=== PATIENT | female | born 1995 | race Caucasian/White ===

== ENCOUNTER 2019-02-13 16:48 | Emergency (ER) | payer OTHER ==
--- NOTE | 2019-02-13 17:09 | ER Document Report ---
ED Medical Screen (RME) - General Chief Complaint: Passed Out Prior to Arrival Stated Complaint: POSSIBLE SYNCOPE - HPI Notes: 02/13/19 17:07 Patient is a 23-year-old female with a history of chronic GI issues who presents complaining of syncopal episode prior to arrival today. Patient states that she had a similar incident on Friday and again on Friday. Patient states that she did have some intermittent nausea, but none currently. She did not hit her head or lose consciousness otherwise. No recent illness. She is able to eat and drink without difficulty. She is urinating normally. Last menstrual period was 1 week ago. No fever, chest pain, shortness of breath, palpitations. I have treated and performed a rapid initial assessment of this patient. A comprehensive ED assessment and evaluation of the patient, analysis of test results and completion of medical decision making process will be conducted by additional ED providers. PHYSICAL EXAMINATION: GENERAL: Well-appearing, well-nourished and in no acute distress. A&Ox4. Answers questions appropriately. Neuro: Cranial nerves grossly intact, NIH 0, GCS 15. Heart: RRR Lungs: CTAB - Related Data Allergies/Adverse Reactions: Penicillins Allergy (Verified 02/13/19 17:00) Physical Exam - Vital signs Vitals: Temp Pulse Resp BP Pulse Ox 98.7 F 111 H 14 132/86 H 100 02/13/19 16:51 02/13/19 16:51 02/13/19 16:51 02/13/19 16:51 02/13/19 16:51 Course - Vital Signs Vital signs: Temp Pulse Resp BP Pulse Ox 98.7 F 111 H 14 132/86 H 100 02/13/19 16:51 02/13/19 16:51 02/13/19 16:51 02/13/19 16:51 02/13/19 16:51
[2019-02-13] MEDS: NORMAL SALINE 1000 ML 1,000 ML IV PRN ×2 (17:54→18:30)
[2019-02-13 17:58] LABS: APPEARANCE,URINE SLIGHTLY-CLOUDY; BILIRUBIN,URINE NEGATIVE (NEGATIVE); COLOR,URINE YELLOW; GLUCOSE, URINE NEGATIVE (NEGATIVE); KETONES,URINE NEGATIVE (NEGATIVE); PROTEIN,URINE NEGATIVE (NEGATIVE); URINE SPECIFIC GRAVITY 1.009; UROBILINOGEN,URINE NEGATIVE mg/dL (<2.0)
[2019-02-13 18:11] LABS: ABSOLUTE EOSINOPHILS # (AUTO) 0.1 10^3/uL (0.0-0.6); ABSOLUTE LYMPHOCYTES (AUTO) 1.6 10^3/uL (0.5-4.7); ABSOLUTE MONOCYTES (AUTO) 0.5 10^3/uL (0.1-1.4); ABSOLUTE NEUT (AUTO) 2.7 10^3/uL (1.7-8.2); BASOPHILS % (AUTO) 0.5 % (0-2); EOSINOPHILS % (AUTO) 1.7 % (0-6); HEMATOCRIT 39.4 % (36.0-47.0); HEMOGLOBIN 13.2 g/dL (12.0-15.5); LYMPHOCYTES % (AUTO) 32.9 % (13-45); MEAN CORPUSCULAR HEMOGLOBIN 29.4 pg (27.0-33.4); MEAN CORPUSCULAR HGB CONC 33.5 g/dL (32.0-36.0); MEAN CORPUSCULAR VOLUME 88 fl (80-97); MONOCYTES % (AUTO) 9.5 % (3-13); PLATELET COUNT 358 10^3/uL (150-450); RED BLOOD COUNT 4.49 10^6/uL (3.72-5.28); RED CELL DISTRIBUTION WIDTH 12.9 % (11.5-14.0); SEGMENTED NEUTROPHILS % (AUTO) 55.4 % (42-78); TOTAL CELLS COUNTED % (AUTO) 100 %; WHITE BLOOD COUNT 4.9 10^3/uL (4.0-10.5)
[2019-02-13 18:28] LABS: ALBUMIN 4.6 g/dL (3.5-5.0); ALKALINE PHOSPHATASE 69 U/L (38-126); ANION GAP 11 (5-19); ASPARTATE AMINO TRANSFERASE 26 U/L (14-36); BILIRUBIN,DIRECT 0.1 mg/dL (0.0-0.4); BILIRUBIN,TOTAL 0.3 mg/dL (0.2-1.3); BLOOD UREA NITROGEN 8 mg/dL (7-20); CALCIUM 10.2 mg/dL (8.4-10.2); CARBON DIOXIDE 27 mmol/L (22-30); CHLORIDE 102 mmol/L (98-107); GLUCOSE 102 mg/dL (75-110); POTASSIUM 4.3 mmol/L (3.6-5.0); TOTAL PROTEIN 7.7 g/dL (6.3-8.2)
[2019-02-13] MEDS ORDERED: NORMAL SALINE 1000 ML 1,000 ML IV ONE (18:55)
--- NOTE | 2019-02-13 19:31 | ER Document Report ---
ED General - General Chief Complaint: Fainting Stated Complaint: POSSIBLE SYNCOPE Time Seen by Provider: 02/13/19 18:52 Primary Care Provider: IBRAHIMA GRACIA MD [Primary Care Provider] - Follow up as needed - HPI Notes: Patient is a 23-year-old female who presents emergency department for evaluation of a near syncopal episode. She states she is really not sure if she passed out all the way or not. She states she was walking around [place] by herself today. She started feeling dizzy. She had a headache. She started heading home and her symptoms persisted. She called her , who is currently deployed in [place]. He advised her to felt puller, call 1 of their neighbors. She put her head down in her hands, and she states she is unsure as to whether or not she passed out or fell asleep. She had her head against the side of the car. She states that last Friday she had a syncopal episode in her apartment. She was on the phone with her . She states she was down on the floor for about 30 minutes. She saw her primary care provider about this, who referred her on to neurology. At this point she has a mild headache, but denies any other acute issues or concerns. - Related Data Allergies/Adverse Reactions: Penicillins Allergy (Verified 02/13/19 17:00) Home Medications: Amitriptyline, Zofran, pantoprazole Past Medical History - General Information source: Patient - Social History Smoking Status: Never Smoker Drug Abuse: None Family History: Reviewed & Not Pertinent Patient has suicidal ideation: No Patient has homicidal ideation: No GI Medical History: Reports: Hx Gastroesophageal Reflux Disease Psychiatric Medical History: Reports: Hx Anxiety, Hx Depression Review of Systems - Review of Systems Constitutional: See HPI EENT: No symptoms reported Cardiovascular: No symptoms reported Respiratory: No symptoms reported Gastrointestinal: See HPI Genitourinary: No symptoms reported Female Genitourinary: No symptoms reported Musculoskeletal: No symptoms reported Skin: No symptoms reported Neurological/Psychological: No symptoms reported Physical Exam - Vital signs Vitals: Temp Pulse Resp BP Pulse Ox 98.7 F 111 H 14 132/86 H 100 02/13/19 16:51 02/13/19 16:51 02/13/19 16:51 02/13/19 16:51 02/13/19 16:51 - Notes Notes: Vital signs reviewed, please refer to chart. Head is normocephalic, atraumatic. Pupils equal round, reactive to light. Neck is supple without meningismus. Heart is tachycardic with normal S1-S2. Lungs are clear to auscultation bilaterally. Abdomen is soft, nontender, normoactive bowel sounds throughout. Extremities without cyanosis, clubbing. Posterior calves are nontender. Peripheral pulses are equal. Skin is warm and dry. Patient is awake, alert, oriented x3. Cranial nerves II - XII are grossly intact without focal neurological deficits. Strength is plus 5 out of 5 bilateral upper and lower extremities. Sensation is intact. Reflexes symmetrical. Intact [id number], rapid alternating movements, [id number]. Course - Re-evaluation Re-evalutation: 02/13/19 23:24 Patient presents emergency department for evaluation of syncopal versus near syncopal episode. Laboratory investigations were obtained. Patient was found to be markedly tachycardic. No other significant abnormality was noted. She was given IV fluids, and her heart rate did not significantly respond. During the course of her stay, the patient complained of a strange sensation in her chest. Given this information and the son explained tachycardia, decision was made to proceed with CT angiogram of the chest. This is found to be negative as well. At this point, I do not have a clear etiology for this patient's symptoms . I do believe that referral to cardiology is appropriate at this time. She needs to follow-up with her primary care provider as well. She is to return to the ED with worsening or concerning symptoms of any sort. - Vital Signs Vital signs: Temp Pulse Resp BP Pulse Ox 98.7 F 119 H 14 113/69 97 02/13/19 16:51 02/13/19 19:41 02/13/19 22:10 02/13/19 22:01 02/13/19 22:10 - Laboratory Result Diagrams: 02/13/19 17:45 02/13/19 17:45 Laboratory results interpreted by me: 02/13/19 15:20 Urine Blood SMALL H Leukocyte Esterase Rfl SMALL H - Diagnostic Test Radiology reviewed: Image reviewed, Reports reviewed - EKG Interpretation by Me Additional EKG results interpreted by me: 02/13/19 23:28 Sinus arrhythmia with a rate of 108 bpm. Normal axis and intervals, no acute ST changes concerning for ischemia or infarction Discharge - Discharge Clinical Impression: Sinus tachycardia Syncope Qualifiers: Encounter type: initial encounter Condition: Stable Disposition: HOME, SELF-CARE Instructions: Sinus Tachycardia ([facility]), Syncopal Episode ([facility]) Additional Instructions: No clear cause was found for your symptoms today. You should follow-up with primary care as well as cardiology. Given your unexplained syncope, you should not drive until further evaluated. Return to the emergency department with worsening or new concerning symptoms of any sort. Referrals: IBRAHIMA GRACIA MD [Primary Care Provider] - Follow up as needed
[2019-02-13 20:05] LABS: URINE AMPHETAMINES SCREEN NEGATIVE; URINE BARBITURATES SCREEN NEGATIVE; URINE BENZODIAZEPINES SCREEN NEGATIVE; URINE COCAINE SCREEN NEGATIVE; URINE MARIJUANA (THC) SCREEN NEGATIVE; URINE METHADONE SCREEN NEGATIVE; URINE PHENCYCLIDINE SCREEN NEGATIVE
--- NOTE | 2019-02-13 21:25 | EKG REPORT ---
SEVERITY:- BORDERLINE ECG - SINUS TACHYCARDIA WITH IRREGULAR RATE 94-130 : Confirmed by: Geovani Beltran MD 13-Feb-2019 21:24:31
--- NOTE | 2019-02-13 23:02 | RADIOLOGY REPORT (SQ) ---
EXAM DESCRIPTION: CT CHEST ANGIOGRAPHY WITHOUT THEN WITH IV CONTRAST COMPLETED DATE/TME: 02/13/2019 21:01 CLINICAL HISTORY: 23 years Female, tachycardia, chest discomfort Comparison: None. Technique: IV contrast. Coronal and sagittal reformat. 3d reconstruction. This exam was performed according to our departmental dose-optimization program, which includes automated exposure control, adjustment of the mA and/or kV according to patient size and/or use of iterative reconstruction technique.[facility]: Dose Right [facility]: CareDose [facility]: Dose Right [facility]: Teradose 4D [facility]: [employer] LIMITATIONS: None Findings: No pulmonary embolus. No right ventricular strain. Clear lungs. Inferior neck, axillae, mediastinum, airway, lymphatics, heart, vasculature, upper abdomen, and musculoskeleton appear otherwise unremarkable. Impression: No pulmonary embolus. No acute cardiopulmonary findings.
[2019-02-13 23:44] VITALS: BP 110/75
== END 2019-02-13 23:53 | disposition home or self-care (01) ==
LOC: ER 16:48
DX: R00.0 Tachycardia, unspecified (principal); R55 Syncope and collapse; R42 Dizziness and giddiness; R51 Headache; Z79.899 Other long term (current) drug therapy
CPT/HCPCS: 93005; 36415; 87086; 83735; 84443; 85025; 81025; 80053; 81001; 80307; 71275; 93010; J7030

== ENCOUNTER 2019-03-28 23:26 | Emergency (ER) | payer OTHER ==
--- NOTE | 2019-03-29 01:56 | ER Document Report ---
ED General - General Chief Complaint: Chest Tightness Stated Complaint: CHEST PAIN Time Seen by Provider: 03/29/19 01:18 Primary Care Provider: IBRAHIMA GRACIA MD [Primary Care Provider] - Follow up as needed Notes: Patient is a 23-year-old female that comes emergency department for chief complaint of pressure and discomfort sensation over her mid to right chest. She states this is coming and going, she states she is feeling it on and off for the past 3 days but much more noticeably today. She states it also feels like it is worse with a breath and her heart is racing at times. She states she is currently undergoing work-up for tachycardia by cardiology but they have not started on the new medications yet. She denies smoking, recreational drugs, recent alcohol. LMP within the past month. She denies recent travel or surgery, history of blood clot, oral contraceptive use, swelling of the legs, family history of early cardiac disease or blood clot. TRAVEL OUTSIDE OF THE [place] IN LAST 30 DAYS: No - Related Data Allergies/Adverse Reactions: Penicillins Allergy (Verified 03/29/19 00:00) NSAIDS (Non-Steroidal Anti-Inflamma Adverse Reaction (Severe, Verified 03/29/19 00:01) GI upset Past Medical History - General Information source: Patient - Social History Smoking Status: Never Smoker Frequency of alcohol use: Occasional Drug Abuse: None Lives with: Family Family History: Reviewed & Not Pertinent Patient has suicidal ideation: No Patient has homicidal ideation: No GI Medical History: Reports: Hx Gastroesophageal Reflux Disease Psychiatric Medical History: Reports: Hx Anxiety, Hx Depression - Immunizations Hx Diphtheria, Pertussis, Tetanus Vaccination: Yes Review of Systems - Review of Systems Constitutional: No symptoms reported EENT: No symptoms reported Cardiovascular: See HPI Respiratory: See HPI Gastrointestinal: No symptoms reported Genitourinary: No symptoms reported Female Genitourinary: No symptoms reported Musculoskeletal: No symptoms reported Skin: No symptoms reported Hematologic/Lymphatic: No symptoms reported Neurological/Psychological: No symptoms reported Physical Exam - Vital signs Vitals: Temp Pulse Resp BP Pulse Ox 98.2 F 109 H 20 125/83 99 03/28/19 23:37 03/28/19 23:37 03/28/19 23:37 03/28/19 23:37 03/28/19 23:37 - Notes Notes: GENERAL: Alert, interacts well. No acute distress. HEAD: Normocephalic, atraumatic. EYES: Pupils equal, round, and reactive to light. Extraocular movements intact. ENT: Oral mucosa moist, tongue midline. Oropharynx unremarkable. NECK: Full range of motion. Supple. Trachea midline. LUNGS: Clear to auscultation bilaterally, no wheezes, rales, or rhonchi. No respiratory distress. Mild tenderness with palpation over the right chest anteriorly. Nonspecific. No erythema, swelling, or significant tenderness. HEART: Regular rate and rhythm. No murmur ABDOMEN: Soft, non-tender. Non-distended. EXTREMITIES: Moves all 4 extremities spontaneously. No edema, normal radial and dorsalis pedis pulses bilaterally. No cyanosis. BACK: no cervical, thoracic, lumbar midline tenderness. No saddle anesthesia, normal distal neurovascular exam. Moves all extremities in full range of motion. NEUROLOGICAL: Alert and oriented x3. Normal speech. Cranial nerves II through XII grossly intact. PSYCH: Normal affect, normal mood. SKIN: Warm, dry, normal turgor. No rashes or lesions noted. Course - Re-evaluation Re-evalutation: Patient with minimal tenderness over the right chest wall, she has some pain with inspiration and sensation of shortness of breath which is mild. She is intermittently tachycardic but this is also not new for her. CBC, chemistry unremarkable, troponin negative despite this going on for several days, d-dimer is also negative. EKG without concerning findings at this time, chest x-ray unremarkable. I discussed with patient all of her work-up. She states satisfaction with this. She already has cardiology follow-up. We discussed options, because of her symptoms suggesting some pleurisy and some mild chest wall pain she was given dexamethasone because she states she cannot take oral NSAIDs because of her stomach. Discussed follow-up and return precautions. Patient states understanding and agreement. Stable at time of discharge. - Vital Signs Vital signs: Temp Pulse Resp BP Pulse Ox 98.1 F 100 14 113/102 H 100 03/29/19 04:06 03/29/19 04:06 03/29/19 04:06 03/29/19 04:06 03/29/19 04:06 - Laboratory Result Diagrams: 03/29/19 02:24 03/29/19 02:24 Laboratory results interpreted by me: 03/29/19 03/29/19 02:24 02:24 Lymph % (Auto) 49.5 H Seg Neutrophils % 38.0 L Calcium 10.3 H - EKG Interpretation by Me Additional EKG results interpreted by me: EKG shows sinus tachycardia at a rate of 108, QTC of 435, normal axis, no T wave inversions or ST segment changes in consecutive leads Discharge - Discharge Clinical Impression: Chest pain Qualifiers: Chest pain type: unspecified Qualified Code(s): R07.9 - Chest pain, unspecified Condition: Stable Disposition: HOME, SELF-CARE Additional Instructions: Your work-up is reassuring with no concerning findings noted. Your evaluation is most consistent with pleurisy, this still could be your chest wall, regardless you have been treated to help improve your symptoms faster. Symptoms should gradually resolve. 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 Return if you worsen including fever, vomiting, severe worsening pain, difficulty breathing, passing out, or any other concerning symptoms. Forms: Return to Work Referrals: IBRAHIMA GRACIA MD [Primary Care Provider] - Follow up as needed
--- NOTE | 2019-03-29 02:33 | RADIOLOGY REPORT (SQ) ---
CLINICAL HISTORY: chest pain COMPARISON: None. TECHNIQUE: XR CHEST 1 VIEW 03/29/2019 1:54 AM [employer] FINDINGS: Cardiac silhouette is normal in size. Lungs are clear without consolidation, atelectasis, mass or edema. There is no pleural effusion. There is no pneumothorax. There are no acute osseous findings. IMPRESSION: Clear lungs.
[2019-03-29 02:35] LABS: ABSOLUTE EOSINOPHILS # (AUTO) 0.1 10^3/uL (0.0-0.6); ABSOLUTE LYMPHOCYTES (AUTO) 2.8 10^3/uL (0.5-4.7); ABSOLUTE MONOCYTES (AUTO) 0.6 10^3/uL (0.1-1.4); ABSOLUTE NEUT (AUTO) 2.1 10^3/uL (1.7-8.2); BASOPHILS % (AUTO) 0.4 % (0-2); HEMATOCRIT 39.3 % (36.0-47.0); HEMOGLOBIN 13.5 g/dL (12.0-15.5); LYMPHOCYTES % (AUTO) 49.5 % (13-45); MEAN CORPUSCULAR HEMOGLOBIN 30.1 pg (27.0-33.4); MEAN CORPUSCULAR HGB CONC 34.3 g/dL (32.0-36.0); MEAN CORPUSCULAR VOLUME 88 fl (80-97); MONOCYTES % (AUTO) 10.1 % (3-13); PLATELET COUNT 295 10^3/uL (150-450); RED BLOOD COUNT 4.49 10^6/uL (3.72-5.28); RED CELL DISTRIBUTION WIDTH 12.5 % (11.5-14.0); TOTAL CELLS COUNTED % (AUTO) 100 %; WHITE BLOOD COUNT 5.7 10^3/uL (4.0-10.5)
[2019-03-29 02:55] LABS: ALBUMIN 4.4 g/dL (3.5-5.0); ALKALINE PHOSPHATASE 71 U/L (38-126); ANION GAP 11 (5-19); ASPARTATE AMINO TRANSFERASE 23 U/L (14-36); BILIRUBIN,DIRECT 0.1 mg/dL (0.0-0.4); BILIRUBIN,TOTAL 0.3 mg/dL (0.2-1.3); BLOOD UREA NITROGEN 8 mg/dL (7-20); CALCIUM 10.3 mg/dL (8.4-10.2); CARBON DIOXIDE 24 mmol/L (22-30); CHLORIDE 107 mmol/L (98-107); GLUCOSE 92 mg/dL (75-110); POTASSIUM 4.2 mmol/L (3.6-5.0); TOTAL PROTEIN 7.2 g/dL (6.3-8.2)
[2019-03-29] MEDS ORDERED: DEXAMETHASONE SOD PHOS INJ 10 MG/1 ML VIAL IM ONE (03:45)
[2019-03-29 04:07] VITALS: BP 113/102
--- NOTE | 2019-03-29 06:46 | EKG REPORT ---
SEVERITY:- OTHERWISE NORMAL ECG - SINUS TACHYCARDIA : Confirmed by: Geovani Beltran MD 29-Mar-2019 06:45:15
== END 2019-03-29 04:07 | disposition home or self-care (01) ==
LOC: ER 23:26
DX: R07.9 Chest pain, unspecified (principal); Z88.0 Allergy status to penicillin
CPT/HCPCS: 93005; 99285; 96372; 36415; 83735; 84703; 85025; 80053; 84484; 85379; 71045; 93010; J1100